=== PATIENT | male | born 1985 | race Caucasian/White ===

== ENCOUNTER 2016-08-04 15:29 | Emergency (ER) | payer OTHER ==
[~2016-08-04] VITALS: Ht 177.8 cm; Wt 91.0 kg
[~2016-08-04 15:29] MED LIST: DEXT30TA7 PO; PRLSR20 PO
[2016-08-04 15:35] VITALS: Ht 177.8 cm; Wt 91.0 kg
[2016-08-04] MEDS ORDERED: MoRPHine SULFATE 4 MG/ML 1 ML CARP\\VIAL IV PRN (16:00)
--- NOTE | 2016-08-04 16:30 | DIAGNOSTIC IMAGING REPORT ---
LEFT ANKLE 3 VIEWS CLINICAL HISTORY: Fall with left ankle pain. FINDINGS: 3 views of left ankle are obtained. No prior studies are available for comparison at the time of dictation. The skeletal structures are well mineralized. No fracture is seen. The ankle mortise is intact. A small joint effusion is noted. Soft tissue swelling is present around the ankle. IMPRESSION: Soft tissue swelling and joint effusion. No left ankle fracture is seen. Electronically signed by: Néstor Marina M.D. 08/04/2016 4:28 PM Dictated Date/Time: 08/04/2016 4:27 PM
--- NOTE | 2016-08-04 16:31 | DIAGNOSTIC IMAGING REPORT ---
RIGHT FOOT 3 VIEWS CLINICAL HISTORY: Fall with right foot pain. FINDINGS: 3 views of the right foot are obtained. No prior studies are available for comparison at the time of dictation. The skeletal structures are well mineralized. No fracture is seen. The joint spaces of the foot are well-maintained. The overlying soft tissues are within normal limits. IMPRESSION: Unremarkable radiographic assessment of the right foot. Electronically signed by: Néstor Marina M.D. 08/04/2016 4:29 PM Dictated Date/Time: 08/04/2016 4:28 PM
[2016-08-04] MEDS ORDERED: OXYCODONE/ACETAMINOPHEN 5-325 TAB PO STA (16:44)
[2016-08-04] MEDS ORDERED: DEXT1TAB15 PO (16:44)
--- NOTE | 2016-08-04 17:23 | EMERGENCY ROOM VISIT NOTE ---
ED Visit Note First contact with patient: 15:48 CHIEF COMPLAINT: Ankle pain HISTORY OF PRESENT ILLNESS: This 31-year-old male patient presents to the emergency department after sustaining an injury to the left ankle and right foot. Patient states he was running and slipped on wet floor, twisting his left ankle and slid across the floor striking both feet against the base. He was initially able to stand and walk on both feet, however quickly began to have significant pain with weightbearing, especially the left ankle. The patient complains of pain along the front and medial aspect of the left ankle. The patient has pain along the top of the right foot, no pain of the left foot. There are multiple abrasions on both feet and ankles, bleeding controlled. The patient rates the pain as throbbing and 9/10. The patient is not able to bear weight on the foot. Constant pain, worse with movement, weight bearing, and the dependent position. No knee pain, the patient is able to move their toes. No numbness or weakness of the foot. The patient has not had a previous fracture to his ankles or feet. The patient has taken no medications for the pain. The patient denies any other injury. He reports his tetanus shot is up- to-date. REVIEW OF SYSTEMS: A 6 system review of systems was completed with positives and pertinent negatives listed in the HPI. ALLERGIES: None MEDICATIONS: See chart PMH: See chart SOCIAL HISTORY: Lives with and children. Former smoker. PHYSICAL EXAM: Vital Signs: Reviewed Nurse's notes, vital signs stable. GENERAL : Cooperative and pleasant, no acute distress, but appears in pain, well- developed, well-nourished. MENTAL STATUS: Alert, oriented to person place and time, and cooperative. MUSCULOSKELETAL: The left ankle is swollen and tender over the medial malleolus, but the skin is intact and there is no ligamentous instability. There is no fifth metatarsal tenderness. There is no tenderness over the rest of the foot. The right foot is tender over the dorsum of the foot along the first and second med tarsals, no deformity noted. There are multiple abrasions over the right and left foot and ankle, bleeding controlled. There is no calf or tibia/fibular tenderness. There is no visual deformity. The foot and toes are warm and well-perfused. Dorsalis pedis pulse 2+. Sensation to pain and light touch is intact. Capillary refill less than 2 seconds. EMERGENCY DEPARTMENT COURSE: I examined the patient. There is obvious swelling and significant tenderness to the left medial ankle, DP and PT pulses intact with cap refill within normal limits, normal sensation in both feet. The right foot has tenderness to palpation along the dorsum of the foot, no obvious deformity. Patient is hesitant to move the left foot or ankle due to pain, but is able to wiggle his toes and give slight resistance with dorsiflexion, plantarflexion, and inversion. He is unable to jeremie the left ankle. X-rays of the left ankle and right foot were reviewed by myself and read by radiology and reveal no acute fracture or dislocation, soft tissue swelling and small effusion noted to the left ankle that is consistent with probable sprain/ligamentous injury. Gel ankle splint was applied to the ankle under my direction and the position was satisfactory. Neurovascular status was rechecked and intact. The patient attempted use of crutches, but felt too off balance due to some pain in the right foot. Patient was provided with a walker , which she tolerated well. The patient was discharged home in good condition. Problem List Medical Problems: (1) ADHD (attention deficit hyperactivity disorder) Status: Chronic (2) GERD (gastroesophageal reflux disease) Status: Chronic (3) Hiatal hernia Status: Chronic (4) Sleep apnea Status: Chronic Current/Historical Medications Scheduled Dextroamphetamine Sulfate (Dextroamphetamine Sulfate), 40 MG PO DAILY Omeprazole (Prilosec), 20 MG PO DAILY Scheduled PRN Oxycodone Ir (Roxicodone Ir), 1-2 TAB PO Q6H PRN for Severe Pain Allergies Coded Allergies: No Known Allergies (Unverified , 12/28/14) Vital Signs Date Time Temp Pulse Resp B/P (MAP) Pulse Ox O2 Delivery O2 Flow Rate FiO2 08/04/16 18:40 36.6 87 18 167/118 99 08/04/16 15:35 36.6 113 20 161/95 100 Room Air Medications Administered Medications (Trade) Dose Ordered Sig/Raul Route Start Time Stop Time Status Last Admin Dose Admin Oxycodone/ Acetaminophen (Percocet 5-325mg Tab) 1 tab NOW STAT PO 08/04/16 16:44 08/04/16 16:45 DC 08/04/16 16:57 1 TAB Departure Information Impression Primary Impression: Moderate left ankle sprain Additional Impression: Contusion of right foot Dispostion Home / Self-Care Condition GOOD Prescriptions Oxycodone Ir (Roxicodone Ir) 5 Mg Tab 1-2 TAB PO Q6H Y for Severe Pain for 3 Days, #24 TAB Prov: Kelsea Freeman, DRAKE 08/04/16 Referrals Car Negron M.D.([facility]) (PCP) Caden Wong D.O. Patient Instructions ED Contusion Foot, ED Sprain Ankle, [facility] Additional Instructions Apply ice to the ankle and foot and elevate for the next 2 days. Use the walker for ambulation, avoid weightbearing on the left ankle as much as possible. Ibuprofen, 600 mg and Tylenol 1000 mg every 8 hours if needed for pain. You may take the oxycodone as prescribed, as needed for severe pain. This is a narcotic, do not drive, operate machinery, drink alcohol while taking this medication. You should follow-up with an orthopedic surgeon within the next 5-7 days to evaluate your ankle sprain. Call to make an appointment. Follow up with your PCP as needed. Please return to the ER for any worsening symptoms, including severe pain that is not treated with your pain medication, increased swelling, redness or drainage from the abrasions concerning for infection, fever/chills, or any other concerns. Work Instructions Return To Work: after follow-up Additional Work Instructions: No weight bearing on the left ankle. Use the walker to ambulate until you are seen by the orthopedic doctor. Problem Qualifiers Primary Impression: Moderate left ankle sprain Encounter type: initial encounter Qualified Codes: S93.402A - Sprain of unspecified ligament of left ankle, initial encounter Additional Impression: Contusion of right foot Encounter type: initial encounter Qualified Codes: S90.31XA - Contusion of right foot, initial encounter
[2016-08-04] MEDS ORDERED: OXYC1TAB3 PO ×2 (17:52→18:07)
[2016-08-04 18:40] VITALS: BP 167/118; PULSE 87; TEMP 36.6; O2SAT 99
== END 2016-08-04 18:15 | disposition home or self-care (01) ==
LOC: C.EDB 15:33
DX: S93.402A Sprain of unspecified ligament of left ankle, initial encounter (principal); S90.01XA Contusion of right ankle, initial encounter; W10.1XXA Fall (on)(from) sidewalk curb, initial encounter; F90.9 Attention-deficit hyperactivity disorder, unspecified type; K21.9 Gastro-esophageal reflux disease without esophagitis; G47.30 Sleep apnea, unspecified; Z87.891 Personal history of nicotine dependence

== ENCOUNTER 2017-04-15 08:56 | Emergency (ER) | payer OTHER ==
[~2017-04-15] VITALS: Ht 177.8 cm; Wt 99.0 kg
[~2017-04-15 08:56] MED LIST changes: +DEXT1TAB15 PO; -DEXT30TA7 PO
[2017-04-15 09:10] VITALS: TEMP 36.7; Ht 177.8 cm; Wt 99.0 kg
[2017-04-15] MEDS ORDERED: CHLORDIAZEPOXIDE 25 MG CAP PO ONE ×2 (10:45→13:45)
--- NOTE | 2017-04-15 10:48 | EMERGENCY ROOM VISIT NOTE ---
History Report prepared by Claudy: Burak Frederick Under the Supervision of: Dr. Carroll Villatoro M.D. First contact with patient: 10:06 Chief Complaint: DETOX REQUEST Stated Complaint: ALCOHOLISM Nursing Triage Summary: Arrives for detox from alcohol. He relates "lots of alcohol. Let's just say 20 shots of day." Consumes "typically Vodka because it's cheaper". States "I mix it with stuff". Mixes with juice. Relates that he has been drinking "at least a few" years. He states "I have been able to stop drinking multiple times on my own. I've used it as a coping mechanism once I started having nervous breakdowns." Relates that he has "psychotic family members" and he is unable to refrain from drinking in their presence. He was detoxed a month ago and returned to the family member he has toxic relationship with. He conveys the person is his . He relates that he has been drinking this past weekend more than he ever has. He indicates that he sleeps and wakes up and immediately drinking. He is trying to taper himself off. Currently does not feel anxious because "I'm under the influence of alcohol right now." History of Present Illness The patient is a 32 year old white male with a past medical history of alcoholism who presents to the ED with a request for alcohol detoxification. Positive vivid lucid dreams. Negative auditory or visual hallucinations, suicidal ideation, homicidal ideation, fevers, nausea, vomiting, diarrhea, or abdominal pain. The patient states that he began to drink heavily a couple of years ago, which was a couple years into his marriage. He normally drinks about 1 L of 40% alcohol every day, mostly in mixed drinks. Over the past couple of weeks, he has tried to ween down his alcohol consumption, but has not been successful. He uses chewing tobacco as well. His last alcoholic drink was two hours ago. Source of History: patient Onset: recently Position: other (Global) Symptom Intensity: moderate Quality: other (Detox Request) Timing: constant Associated Symptoms: No fevers, No nausea, No vomiting, No abdominal pain, No diarrhea Note: He has been experiencing vivid lucid dreams. He denies any suicidal ideation, homicidal ideation, and hallucinations. Review of Systems See HPI for pertinent positives and negatives. A total of ten systems were reviewed and were otherwise negative. Past Medical & Surgical Medical Problems: (1) ADHD (attention deficit hyperactivity disorder) (2) GERD (gastroesophageal reflux disease) (3) Hiatal hernia (4) Sleep apnea Family History Patient reports no known family medical history. Social History Smoking Status: Former Smoker Smokeless Tobacco Use: Yes Alcohol Use: heavy Drug Use: none Marital Status: Housing Status: lives with family Occupation Status: unemployed Current/Historical Medications Scheduled Chlordiazepoxide (Librium), 25 MG PO BLANK Dextroamphetamine Sulfate (Dextroamphetamine Sulfate), 40 MG PO DAILY Omeprazole (Prilosec), 20 MG PO DAILY Allergies Coded Allergies: No Known Allergies (Unverified , 04/15/17) Physical Exam Vital Signs Date Time Temp Pulse Resp B/P (MAP) Pulse Ox O2 Delivery O2 Flow Rate FiO2 04/15/17 13:29 107 18 167/127 100 04/15/17 12:54 98 18 97 Room Air 04/15/17 10:54 90 20 192/121 99 Room Air 04/15/17 09:10 36.7 99 18 165/117 97 Room Air Physical Exam GENERAL: Awake, alert, well-appearing, NAD HENT: Normocephalic, atraumatic. No tongue fasciculations. EYES: Normal conjunctiva. Sclera non-icteric. NECK: Supple. No nuchal rigidity. FROM. RESPIRATORY: CTAB, no rhonchi, wheezing, crackles CARDIAC: RRR, no MRG ABDOMEN: Soft, NTND, BS+ MSK: No chest wall TTP, no LE edema. No asterixis NEURO: GCS 15, CN 2-12 intact, moves all 4s on command SKIN: No rash or jaundice noted. PSYCH: No SI, no HI, no AVH, no skin crawling. Medical Decision & Procedures Laboratory Results 04/15/17 09:45 Red Blood Count 5.39, Mean Corpuscular Volume 87.9, Mean Corpuscular Hemoglobin 31.0, Mean Corpuscular Hemoglobin Concent 35.2, Mean Platelet Volume 9.8, Neutrophils (%) (Auto) 51.1, Lymphocytes (%) (Auto) 34.6, Monocytes (%) (Auto) 10.1, Eosinophils (%) (Auto) 3.3, Basophils (%) (Auto) 0.6, Neutrophils # (Auto ) 3.42, Lymphocytes # (Auto) 2.32, Monocytes # (Auto) 0.68, Eosinophils # (Auto ) 0.22, Basophils # (Auto) 0.04 04/15/17 09:45 Test 04/15/17 09:45 04/15/17 11:04 White Blood Count 6.70 K/uL (4.8-10.8) Red Blood Count 5.39 M/uL (4.7-6.1) Hemoglobin 16.7 g/dL (14.0-18.0) Hematocrit 47.4 % (42-52) Mean Corpuscular Volume 87.9 fL (80-100) Mean Corpuscular Hemoglobin 31.0 pg (25-34) Mean Corpuscular Hemoglobin Concent 35.2 g/dl (32-36) Platelet Count 180 K/uL (130-400) Mean Platelet Volume 9.8 fL (7.4-10.4) Neutrophils (%) (Auto) 51.1 % Lymphocytes (%) (Auto) 34.6 % Monocytes (%) (Auto) 10.1 % Eosinophils (%) (Auto) 3.3 % Basophils (%) (Auto) 0.6 % Neutrophils # (Auto) 3.42 K/uL (1.4-6.5) Lymphocytes # (Auto) 2.32 K/uL (1.2-3.4) Monocytes # (Auto) 0.68 K/uL (0.11-0.59) Eosinophils # (Auto) 0.22 K/uL (0-0.5) Basophils # (Auto) 0.04 K/uL (0-0.2) RDW Standard Deviation 43.6 fL (36.4-46.3) RDW Coefficient of Variation 13.7 % (11.5-14.5) Immature Granulocyte % (Auto) 0.3 % Immature Granulocyte # (Auto) 0.02 K/uL (0.00-0.02) Urine Color YELLOW Urine Appearance CLEAR (CLEAR) Urine pH 8.0 (4.5-7.5) Urine Specific [place] 1.004 (1.000-1.030) Urine Protein NEG (NEG) Urine Glucose (UA) NEG (NEG) Urine Ketones NEG (NEG) Urine Occult Blood NEG (NEG) Urine Nitrite NEG (NEG) Urine Bilirubin NEG (NEG) Urine Urobilinogen NEG (NEG) Urine Leukocyte Esterase NEG (NEG) Anion Gap 8.0 mmol/L (3-11) Est Creatinine Clear Calc Drug Dose 116.9 ml/min Estimated GFR () 106.8 Estimated GFR (Non- 92.2 BUN/Creatinine Ratio 8.8 (10-20) Calcium Level 8.5 mg/dl (8.5-10.1) Total Bilirubin 0.5 mg/dl (0.2-1) Direct Bilirubin 0.2 mg/dl (0-0.2) Aspartate Amino Transf (AST/SGOT) 88 U/L (15-37) Alanine Aminotransferase (ALT/SGPT) 99 U/L (12-78) Alkaline Phosphatase 70 U/L (45-117) Total Protein 7.7 gm/dl (6.4-8.2) Albumin 3.7 gm/dl (3.4-5.0) Thyroid Stimulating Hormone (TSH) 4.660 uIu/ml (0.300-4.500) Salicylates Level < 1.7 mg/dl (2.8-20) Urine Opiates Screen NEG (NEG) Urine Methadone, Qualitative NEG (NEG) Acetaminophen Level < 2 ug/ml (10-30) Urine Barbiturates NEG (NEG) Urine Phencyclidine (PCP) Level NEG (NEG) Ur Amphetamine/Methamphetamine NEG (NEG) MDMA (Ecstasy) Screen NEG (NEG) Urine Benzodiazepines Screen NEG (NEG) Urine Cocaine Metabolite NEG (NEG) Urine Marijuana (THC) NEG (NEG) Ethyl Alcohol mg/dL 171.0 mg/dl (0-3) Laboratory results reviewed by me Medications Administered Medications (Trade) Dose Ordered Sig/Raul Route Start Time Stop Time Status Last Admin Dose Admin Chlordiazepoxide (Librium Cap) 100 mg NOW ONCE PO 04/15/17 10:45 04/15/17 10:46 DC 04/15/17 10:45 100 MG Chlordiazepoxide (Librium Cap) 100 mg NOW ONCE PO 04/15/17 13:45 04/15/17 13:46 DC 04/15/17 13:46 100 MG ED Course 1006: The patient was evaluated in room A5. A complete history and physical exam was performed. 1300: I reevaluated the patient. Discussed results and discharge instructions: He verbalized understanding and agreement. The patient is ready for discharge. Medical Decision The patient is a 32 year old white male with a past medical history of alcoholism who presents to the ED with a request for alcohol detoxification. Positive vivid lucid dreams. Negative auditory or visual hallucinations, suicidal ideation, homicidal ideation, fevers, nausea, vomiting, diarrhea, or abdominal pain. Differential diagnosis: Etiologies such as alcohol intoxication, toxicologic, infection, hypoglycemia, electrolyte abnormalities, cardiac sources, intracerebral event, neurologic, as well as others were entertained. Patient was seen and evaluated the bedside. Patient was requesting alcohol detox detoxification as well as referral services. Exam the patient had no no signs of delirium tremens. Patient last had a drink around 10 AM. Patient denies any SI, HI, a pH, or formication. Patient did have blood work completed. Patient has an alcohol level of 170. The patient is clinically sober. Patient was evaluated by case management give him referrals. Patient was given a first dose of Librium was prescribed Librium taper. Patient was told to follow up with his outpatient providers as well as any resources he was given by our mental health specialist. Patient was deemed suitable for outpatient follow-up and treatment at this time, and was told to return if he has any worsening of symptoms. Patient did have some asymptomatic hypertension was told to follow-up. He was told that discontinuing his drinking would help improve this. He was also counseled to take a multivitamin. Patient was given strict follow-up, discharge, and return precautions. All questions were answered. Patient was deemed suitable for outpatient follow-up at this time. Patient agreed with the plan of care and was safely discharged home. Of note the patient was given 100 mg of Librium and was told to take 50mg around 5 PM and another 50mg around 11 PM has he is not able to obtain his prescription until tomorrow as the pharmacy does not have it until tomorrow. Medication Reconcilliation Current Medication List: was personally reviewed by me Blood Pressure Screening Patient's blood pressure: Elevated blood pressure Blood pressure disposition: Referred to PCP Impression Primary Impression: Alcohol abuse Additional Impressions: Encounter for smoking cessation counseling Hypertension Scribe Attestation The scribe's documentation has been prepared under my direction and personally reviewed by me in its entirety. I confirm that the note above accurately reflects all work, treatment, procedures, and medical decision making performed by me. Departure Information Dispostion Home / Self-Care Prescriptions Chlordiazepoxide (Librium) 25 Mg Cap 25 MG PO BLANK for 4 Days, #19 CAP Take 2 tabs Q6H x 1 day, take 2 tabs Q8H x 1 day, take 1 take Q8H x 1 day, and take 1 tab Q12H x 1 day Prov: Carroll Villatoro M.D. 04/15/17 Referrals No Doctor, Assigned (PCP) Forms HOME CARE DOCUMENTATION FORM, IMPORTANT VISIT INFORMATION, WORK / SCHOOL INSTRUCTIONS Patient Instructions Addiction Alcohol Signs, Alcohol Abuse - [facility], ED Smoking Cessation, [facility] Additional Instructions Please return to the emergency department if you have worsening or recurrent symptoms not amenable to at-home treatment. Please call for a follow-up appointment with her primary care physician. Please take your medications as prescribed. If you have other concerns and/or complaints please feel free to also call your primary care physician's office or return the ED for further evaluation, management, and treatment. You were found to have an elevated blood pressure today (>120 sytolic or >90 diastolic). Per medicare guidelines, you need to follow up with this blood pressure screening with your Primary Care Physician (PCP). For a new PCP call [phone]. You received narcotic or benzodiazepene medication while in the emergency room today. This is an addictive medication that may cause drowziness as well as constipation. Do not drive, operate heavy machinery, or drink alcohol under the influence of this medication. Please take the Librium as prescribed. Please follow-up with your PCP in addition follow-up with any resources were given here at the emergency department. Please try to stop drinking as well as tobacco cessation. You have been examined and treated today on an emergency basis only. This is not a substitute for, or an effort to provide, complete comprehensive medical care. It is impossible to recognize and treat all injuries or illnesses in a single emergency department visit. It is therefore important that you follow up closely with [facility], your PCP, and/or your specialist(s). Call as soon as possible for an appointment. Thank you for your time and consideration. I look forward to speaking with you again soon. Please don't hesitate to call us if you have any questions. Problem Qualifiers Additional Impressions: Hypertension Hypertension type: unspecified Qualified Codes: I10 - Essential (primary) hypertension
[2017-04-15 10:55] LABS: BASO % 0.6 %; BASO ABS # 0.04 K/uL (0-0.2); EOS % 3.3 %; EOS ABS # 0.22 K/uL (0-0.5); HEMATOCRIT 47.4 % (42-52); HEMOGLOBIN 16.7 g/dL (14.0-18.0); IG# 0.02 K/uL (0.00-0.02); LYMPH % 34.6 %; LYMPH ABS # 2.32 K/uL (1.2-3.4); MEAN CELL VOLUME 87.9 fL (80-100); MEAN CORPUSCULAR HGB CONC 35.2 g/dl (32-36); MEAN PLATELET VOLUME 9.8 fL (7.4-10.4); MONO % 10.1 %; MONO ABS # 0.68 K/uL (0.11-0.59); NEUT % 51.1 %; NEUT ABS # 3.42 K/uL (1.4-6.5); PLATELET COUNT 180 K/uL (130-400); RED CELL DISTRIBUTION WIDTH CV 13.7 % (11.5-14.5); RED CELL DISTRIBUTION WIDTH SD 43.6 fL (36.4-46.3)
[2017-04-15 11:19] LABS: ALBUMIN 3.7 gm/dl (3.4-5.0); CALCIUM 8.5 mg/dl (8.5-10.1); CREATININE 1.05 mg/dl (0.60-1.40)
[2017-04-15 11:22] LABS: POTASSIUM 4.4 mmol/L (3.5-5.1)
[2017-04-15 11:25] LABS: TOTAL PROTEIN 7.7 gm/dl (6.4-8.2)
[2017-04-15] MEDS ORDERED: CHLO25CA10 PO (12:59)
[2017-04-15 13:29] VITALS: BP 167/127; PULSE 107; O2SAT 100
[2017-04-15] MEDS ORDERED: EMPTY 8 DRAM VIAL ONE (13:42)
== END 2017-04-15 13:31 | disposition home or self-care (01) ==
LOC: C.EDB 08:58 → C.EDA 13:31
DX: F10.10 Alcohol abuse, uncomplicated (principal); Z71.6 Tobacco abuse counseling; I10 Essential (primary) hypertension; F90.9 Attention-deficit hyperactivity disorder, unspecified type; K21.9 Gastro-esophageal reflux disease without esophagitis; G47.30 Sleep apnea, unspecified; K44.9 Diaphragmatic hernia without obstruction or gangrene; Z87.891 Personal history of nicotine dependence; Z79.899 Other long term (current) drug therapy

== ENCOUNTER 2020-12-23 14:30 | Inpatient (IN) ==
[2020-12-23] MEDS ORDERED: THIAMINE HCL 100 MG TAB PO ONE (15:39)
[2020-12-23 16:06] LABS: Appearance Urine Cloudy (Clear); Bacteria Urine Automated Negative (Negative); Bilirubin Urine Negative (Negative); Blood Urine Negative (Negative); Color Urine Dark Yellow; Epithelial Cell Urine Auto >30 /lpf (0-5); Glucose Urine UA Negative (Negative); Ketones Urine Trace (Negative); Leukocyte Esterase Urine Negative (Negative); Nitrite Urine Negative (Negative); Protein Urine Negative (Negative); RBC Urine Automated 0-4 /hpf (0-4); Specific Gravity Urine 1.021 (1.000-1.030); Urobilinogen Urine Negative (Negative)
[2020-12-23 16:13] LABS: Pregnancy Test, Serum Negative (Negative)
[2020-12-23 16:16] LABS: Acetaminophen < 2 ug/ml (10-30); Salicylate < 1.7 mg/dl (2.8-20)
[2020-12-23 16:20] LABS: Albumin Level 4.1 gm/dl (3.4-5.0); BUN Creatinine Ratio 7.8 (10-20); Calcium 9.4 mg/dl (8.5-10.1)
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
[2020-12-23 16:26] LABS: Amphetamines+Metham, Urine Neg (Neg); Barbiturates, Urine Neg (Neg); Benzodiazepine, Urine Neg (Neg); Cocaine, Urine Neg (Neg); MDMA (Ecstacy), Urine Neg (Neg); Methadone, Urine Neg (Neg); Opiate, Urine Neg (Neg); Phencyclidine, Urine Neg (Neg)
[2020-12-23 16:31] LABS: Albumin Globulin Ratio 1.1 (0.9-2); Bilirubin,Total 0.5 mg/dl (0.2-1); Globulin 3.7 gm/dl (2.5-4.0); Thyroid Stimulating Hormone 2.97 uIu/ml (0.300-4.500); Total Protein 7.8 gm/dl (6.4-8.2)
[2020-12-23] MEDS ORDERED: NICOTINE 21 MG/24 HR TDSY TD ONE (16:31)
[2020-12-23 16:59] LABS: Basophils # (auto) 0.03 K/uL (0-0.2); Basophils % (auto) 0.3 %; Eosinophils # (auto) 0.16 K/uL (0-0.5); Eosinophils % (auto) 1.7 %; Immature Granulocytes # (auto) 0.03 K/uL (0.00-0.02); Immature Granulocytes % (auto) 0.3 %; Lymphocytes # (auto) 1.95 K/uL (1.2-3.4); Lymphocytes % (auto) 20.8 %; Mean Corpuscular Hgb Conc 34.9 g/dL (32-36); Mean Corpuscular Volume 88.8 fL (80-100); Mean Platelet Volume 10.7 fL (7.4-10.4); Monocytes # (auto) 0.75 K/uL (0.11-0.59); Neutrophils # (auto) 6.44 K/uL (1.4-6.5); Neutrophils % (auto) 68.9 %; Platelet Count 281 K/uL (130-400); RDW Coefficient of Variation 13.7 % (11.5-14.5); RDW Standard Deviation 44.7 fL (36.4-46.3); White Blood Count 9.36 K/uL (4.8-10.8)
[2020-12-23] MEDS ORDERED: LORazepam 1 MG TAB PO STA (17:01)
[2020-12-23] MEDS ORDERED: ONDANSETRON INJ 2 MG/ML 2 ML VIAL IV STA (17:26)
[2020-12-23] MEDS ORDERED: LORazepam 1 MG/2 ML VIAL IV STA (17:26)
[2020-12-23] MEDS ORDERED: SODIUM CHLORIDE 0.9% 1000ML 1,000 ML IV STA (17:26)
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
[2020-12-23] MEDS ORDERED: GABAPENTIN 1200MG ALCOHOL WITHDRAWAL LOAD PO STA (18:08)
[2020-12-23] MEDS ORDERED: GABAPENTIN 600 MG TAB PO ONE (18:15)
[2020-12-23 18:48] LABS: Magnesium 2.1 mg/dl (1.8-2.4); Phosphorus 2.5 mg/dl (2.5-4.9); Troponin I < 0.015 ng/ml (0-0.045)
[2020-12-24] MEDS ORDERED: POLYETHYLENE (MIRALAX) 17 GM PACK PO PRN (00:01)
[2020-12-24] MEDS ORDERED: LORazepam 3 MG/6 ML VIAL IV PRN (00:01)
[2020-12-24] MEDS ORDERED: SODIUM CHLORIDE 0.9% 1000ML 1,000 ML IV SCH (00:01)
[2020-12-24] MEDS ORDERED: ATIVAN IV ALCOHOL WITHDRAWL IV PRN (00:01)
[2020-12-24] MEDS ORDERED: ONDANSETRON INJ 2 MG/ML 2 ML VIAL IV PRN (00:01)
[2020-12-24] MEDS ORDERED: LORazepam 2 MG/4 ML VIAL IV PRN (00:01)
[2020-12-24] MEDS ORDERED: PATIENT'S ALLERGY INFO NEEDS ENTERED STA (00:08)
[2020-12-24] MEDS: chlordiazePOXIDE HCl 25 MG CAP PO SCH ×3 (01:12→17:25)
[2020-12-24] MEDS: LORazepam 1 MG/2 ML VIAL IV PRN ×3 (01:27→13:24)
[2020-12-24] MEDS: FOLIC ACID 1 MG TAB PO SCH ×2 (01:55→08:50)
[2020-12-24] MEDS: THIAMINE HCL 100 MG TAB PO SCH ×2 (01:55→08:50)
[2020-12-24 07:43] LABS: Hematocrit (blood only) 39.7 % (42-52); Hemoglobin 13.5 g/dL (14.0-18.0); Mean Corpuscular Hemoglobin 30.7 pg (25-34); Mean Corpuscular Volume 90.2 fL (80-100); Mean Platelet Volume 10.5 fL (7.4-10.4); Platelet Count 223 K/uL (130-400); RDW Coefficient of Variation 13.9 % (11.5-14.5); RDW Standard Deviation 45.8 fL (36.4-46.3); White Blood Count 7.87 K/uL (4.8-10.8)
[2020-12-24 08:11] LABS: BUN Creatinine Ratio 9.1 (10-20); Calcium 8.1 mg/dl (8.5-10.1); Creatinine Clr Calc Pharmacy 127.7 ml/min; Est GFR (African American) 124.3 ml/min; Est GFR (Non-African American) 107.3 ml/min
[2020-12-24 08:12] LABS: Phosphorus 3.5 mg/dl (2.5-4.9)
[2020-12-24] MEDS: MULTIVITAMIN TAB PO SCH (08:50)
[2020-12-24] MEDS: NICOTINE 21 MG/24 HR TDSY TD SCH (08:50)
[2020-12-24] MEDS: FINASTERIDE 5 MG TAB PO SCH ×2 (08:50→08:56)
[2020-12-24] MEDS: PANTOprazole 40 MG TAB PO SCH (08:56)
--- NOTE | 2020-12-24 14:04 | Electrocardiogram Report ---
Test Reason : Blood Pressure : / mmHG Vent. Rate : 079 BPM Atrial Rate : 079 BPM P-R Int : 130 ms QRS Dur : 072 ms QT Int : 384 ms P-R-T Axes : 000 090 -23 degrees QTc Int : 440 ms Normal sinus rhythm Rightward axis Low voltage QRS Nonspecific T wave abnormality Abnormal ECG No previous ECGs available Confirmed by Manny Jones ([id number]) on 12/24/2020 2:04:23 PM Referred By: REFERRED SELF Confirmed By:Manny Jones
--- NOTE | 2020-12-24 16:40 | Hospitalist Progress Note ---
Date of Service December 24, 2020 Assessment & Plan (1) Anxiety and depression: (2) Alcohol withdrawal: (3) Tobacco use: Plan: 35 y/o male to female transgender with PMH of PTSD, HTN, tobacco use, alcohol abuse, medical marijuana use presented to ER 12/23 with complaint of impending alcohol withdrawal. Patient is a relapsed alcoholic, who had been sober prior but due to recent stressful social situation resorted back to drinking but then she decided to come to hospital with intention to quit drinking and is worried about impending withdrawal. She is being managed for the following: #. Alcohol withdrawal: Drinks fifth of vodka. H/O outpatient Librium use for ETOH withdrawal Denies history of alcohol withdrawal seizures or DTs In ER patient afebrile, P: 101 down to 85, R: 20, BP 187/120, 98% on room air. No significant electrolyte abnormality. Urine drug tox + marijuana. EtOH: 11 Thiamine, folic acid, MARC protocol, scheduled Librium Monitor electrolytes, replace as appropriate Decrease the frequency of Librium in 1 to 2 days. Continue to monitor #. HTN (hypertension): History of hypertension and was on amlodipine in past. Was able to discontinue secondary to improved BPs Hypertensive in ER. Likely secondary to alcohol withdrawal, anxiety Treat alcohol withdrawal as above, monitor BP may need to add additional agent, evaluate in 1 to 2 days. #. Fmkc-cr-qdbdhu transgender person: Follows with [facility] Continue hormone therapy #. PTSD (post-traumatic stress disorder): Reports under significant stress recently with social situation -recent break-up of significant other which in turn reports will have difficulties with housing and job Denies suicidal or homicidal ideations manager medicare marketing consult with assistance for discharge planning #. Tobacco use: Currently smoking 1 pack/day. Wants to stop smoking Nicotine patch, DC with nicotine patch #. Medical marijuana use: Using for history of PTSD and pain. Recently admits to using more than was prescribed Wants to discontinue use, pt counselled. DVT Prophylaxis -SCDs, Heparin Full Code as per discussion with pt Follows with Dr Patel for routine care Admission and Anticipated Discharge Date Admission Date: December 23, 2020 Subjective Patient was lying in bed, on room air, NAD, no acute events overnight. Patient requiring 3 mg Ativan so far. Patient is on scheduled Librium, denies headache/chills/sweats/chest pain/palpitation/other review of symptoms. Physical Exam Physical Exam: GENERAL: Alert and oriented x3. NAD, on RA. HEENT: No pallor, no icterus. Pupils equal, round and reactive to light. Oral mucosa moist. NECK: No JVD, no neck masses. HEART: S1 and S2 heard. Regular rate and rhythm. No murmur, no gallop. RESPIRATORY SYSTEM: Normal AP diameter. No accessory muscle use. No wheezing, no crackles. ABDOMEN: Soft, bowel sounds present, nontender, no distention. CENTRAL NERVOUS SYSTEM: Alert and oriented x3. No facial droop. Speech is clear. Obeys simple commands. Moves extremities. EXTREMITIES: No edema, no erythema seen. Results & Data Results & Data ([facility]) Vital Signs (Past 12 Hours) Vital Signs Temp Pulse Pulse Resp BP BP Pulse Ox 12/24/20 16:04 36.5 C 80 19 144/91 H 99 12/24/20 16:00 80 12/24/20 13:12 36.6 C 90 22 162/119 H 100 12/24/20 07:31 71 12/24/20 07:07 36.6 C 80 18 134/93 99 (1) Alcohol withdrawal Complication of substance-induced condition: uncomplicated Qualified Code(s): F10.230 - Alcohol dependence with withdrawal, uncomplicated
[2020-12-24] MEDS: HEPARIN SOD 5,000 UNIT/0.5 ML VIAL SQ SCH (20:19)
[2020-12-25] MEDS: chlordiazePOXIDE HCl 25 MG CAP PO SCH ×4 (00:23→23:48)
[2020-12-25] MEDS: LORazepam 1 MG/2 ML VIAL IV PRN ×3 (00:27→21:55)
[2020-12-25 07:40] LABS: BUN Creatinine Ratio 11.8 (10-20); Calcium 8.6 mg/dl (8.5-10.1); Creatinine Clr Calc Pharmacy 129.3 ml/min; Est GFR (Non-African American) 108.7 ml/min; Magnesium 2.1 mg/dl (1.8-2.4); Phosphorus 3.3 mg/dl (2.5-4.9); Potassium 3.7 mmol/L (3.5-5.1)
[2020-12-25] MEDS: FINASTERIDE 5 MG TAB PO SCH (07:52)
[2020-12-25] MEDS: THIAMINE HCL 100 MG TAB PO SCH (07:54)
[2020-12-25] MEDS: MULTIVITAMIN TAB PO SCH (07:55)
[2020-12-25] MEDS: PANTOprazole 40 MG TAB PO SCH ×2 (07:55→08:00)
[2020-12-25] MEDS: FOLIC ACID 1 MG TAB PO SCH (07:55)
[2020-12-25] MEDS: NICOTINE 21 MG/24 HR TDSY TD SCH (07:55)
[2020-12-25] MEDS: HEPARIN SOD 5,000 UNIT/0.5 ML VIAL SQ SCH ×2 (07:56→21:06)
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
--- NOTE | 2020-12-25 17:55 | Hospitalist Progress Note ---
Date of Service December 25, 2020 Assessment & Plan (1) Anxiety and depression: (2) Alcohol withdrawal: (3) Tobacco use: Plan: 35 y/o male to female transgender with PMH of PTSD, HTN, tobacco use, alcohol abuse, medical marijuana use presented to ER 12/23 with complaint of impending alcohol withdrawal. Patient is a relapsed alcoholic, who had been sober prior but due to recent stressful social situation resorted back to drinking but then she decided to come to hospital with intention to quit drinking and is worried about impending withdrawal. She is being managed for the following: #. Alcohol withdrawal: #. PTSD Drinks fifth of vodka. H/O outpatient Librium use for ETOH withdrawal Denies history of alcohol withdrawal seizures or DTs was in [employer], h/o PTSD In ER patient afebrile, P: 101 down to 85, R: 20, BP 187/120, 98% on room air. No significant electrolyte abnormality. Urine drug tox + marijuana. EtOH: 11 Thiamine, folic acid, MARC protocol, scheduled Librium Monitor electrolytes, replace as appropriate Decrease the frequency of Librium in 1 to 2 days. Psychiatry consulted: Started mirtazapine 15 mg at bedtime, recommends inpatient D&A rehab, lesion to facilitate with referral to [facility]. Patient will need therapist and prescriber for ongoing follow-up. Continue to monitor #. HTN (hypertension): History of hypertension and was on amlodipine in past. Was able to discontinue secondary to improved BPs Hypertensive in ER. Likely secondary to alcohol withdrawal, anxiety Treat alcohol withdrawal as above, monitor BP may need to add additional agent, closely monitor. #. Lljg-gk-xgdvey transgender person: Follows with [facility] Continue hormone therapy #. PTSD (post-traumatic stress disorder): Reports under significant stress recently with social situation -recent break-up of significant other which in turn reports will have difficulties with housing and job Denies suicidal or homicidal ideations customer marketing manager consult with assistance for discharge planning #. Tobacco use: Currently smoking 1 pack/day. Wants to stop smoking Nicotine patch, DC with nicotine patch #. Medical marijuana use: Using for history of PTSD and pain. Recently admits to using more than was prescribed Wants to discontinue use, pt counselled. DVT Prophylaxis -SCDs, Heparin Full Code as per discussion with pt Follows with Dr Patel for routine care Disposition: Patient needs inpatient D&A rehab, catalytic case operator to assist with discharge planning. Patient possible discharge in next 1 to 2 days. Admission and Anticipated Discharge Date Admission Date: December 23, 2020 Subjective Patient was lying in bed, on room air, NAD, no acute events overnight. Patient is on scheduled Librium, denies headache/chills/sweats/chest pain/palpitation/other review of symptoms. Physical Exam Physical Exam: GENERAL: Alert and oriented x3. NAD, on RA. HEENT: No pallor, no icterus. Pupils equal, round and reactive to light. Oral mucosa moist. NECK: No JVD, no neck masses. HEART: S1 and S2 heard. Regular rate and rhythm. No murmur, no gallop. RESPIRATORY SYSTEM: Normal AP diameter. No accessory muscle use. No wheezing, no crackles. ABDOMEN: Soft, bowel sounds present, nontender, no distention. CENTRAL NERVOUS SYSTEM: Alert and oriented x3. No facial droop. Speech is clear. Obeys simple commands. Moves extremities. EXTREMITIES: No edema, no erythema seen. Results & Data Results & Data ([facility]) Vital Signs (Past 12 Hours) Vital Signs Temp Pulse Pulse Resp BP BP Pulse Ox 12/25/20 15:52 36.7 C 94 H 20 133/71 98 12/25/20 15:46 91 H 12/25/20 13:04 36.9 C 97 H 22 165/114 H 12/25/20 11:50 36.6 C 104 H 20 169/102 H 98 12/25/20 07:50 36.9 C 75 18 124/84 99 12/25/20 07:28 74 (1) Alcohol withdrawal Complication of substance-induced condition: uncomplicated Qualified Code(s): F10.230 - Alcohol dependence with withdrawal, uncomplicated
[2020-12-25] MEDS: MIRTAZAPINE TAB 15 MG TAB PO SCH (21:55)
[2020-12-25] MEDS: ACETAMINOPHEN 325 MG TAB PO PRN (23:48)
[2020-12-26 07:54] LABS: BUN Creatinine Ratio 17.9 (10-20); Calcium 8.6 mg/dl (8.5-10.1); Creatinine Clr Calc Pharmacy 140.4 ml/min; Est GFR (African American) 130.3 ml/min; Est GFR (Non-African American) 112.4 ml/min; Magnesium 2.2 mg/dl (1.8-2.4); Phosphorus 3.3 mg/dl (2.5-4.9); Potassium 3.5 mmol/L (3.5-5.1)
[2020-12-26] MEDS: chlordiazePOXIDE HCl 25 MG CAP PO SCH ×3 (08:07→23:10)
[2020-12-26] MEDS: MULTIVITAMIN TAB PO SCH (08:08)
[2020-12-26] MEDS: NICOTINE 21 MG/24 HR TDSY TD SCH (08:08)
[2020-12-26] MEDS: THIAMINE HCL 100 MG TAB PO SCH (08:09)
[2020-12-26] MEDS: FINASTERIDE 5 MG TAB PO SCH (08:09)
[2020-12-26] MEDS: FOLIC ACID 1 MG TAB PO SCH (08:09)
[2020-12-26] MEDS: PANTOprazole 40 MG TAB PO SCH (08:09)
[2020-12-26] MEDS: HEPARIN SOD 5,000 UNIT/0.5 ML VIAL SQ SCH ×2 (08:10→20:18)
[2020-12-26 12:02] LABS: Marijuana Quant, GCMS Urine 791 ng/mL (<5)
--- NOTE | 2020-12-26 17:09 | Communication Note ---
Date of Service: December 26, 2020 For some reason, with multiple attempts during the day I could not open progress note document for her. Hence using supplemental note for progress note. Please use the following as a progress note for the day for the patient. 35 y/o male to female transgender with PMH of PTSD, HTN, tobacco use, alcohol abuse, medical marijuana use presented to ER 12/23 with complaint of impending alcohol withdrawal. Patient is a relapsed alcoholic, who had been sober prior but due to recent stressful social situation resorted back to drinking but then she decided to come to hospital with intention to quit drinking and is worried about impending withdrawal. She is being managed for the following: Subjective: Patient is lying in bed, NAD, on room air, no acute events overnight. Patient denies headache/chills/chest pain/other review of symptoms. Upon examination: GENERAL: Alert and oriented x3. NAD, on RA. HEENT: No pallor, no icterus. Pupils equal, round and reactive to light. Oral mucosa moist. NECK: No JVD, no neck masses. HEART: S1 and S2 heard. Regular rate and rhythm. No murmur, no gallop. RESPIRATORY SYSTEM: Normal AP diameter. No accessory muscle use. No wheezing, no crackles. ABDOMEN: Soft, bowel sounds present, nontender, no distention. CENTRAL NERVOUS SYSTEM: Alert and oriented x3. No facial droop. Speech is clear. Obeys simple commands. Moves extremities. EXTREMITIES: No edema, no erythema seen. #. Alcohol withdrawal: #. PTSD Drinks fifth of vodka. H/O outpatient Librium use for ETOH withdrawal Denies history of alcohol withdrawal seizures or DTs was in [employer], h/o PTSD In ER patient afebrile, P: 101 down to 85, R: 20, BP 187/120, 98% on room air. No significant electrolyte abnormality. Urine drug tox + marijuana. EtOH: 11 Thiamine, folic acid, MARC protocol, scheduled Librium Monitor electrolytes, replace as appropriate Decrease the frequency of Librium in 1 to 2 days. Psychiatry consulted: Started mirtazapine 15 mg at bedtime, recommends inpatient D&A rehab, lesion to facilitate with referral to [facility]. Patient will need therapist and prescriber for ongoing follow-up. Continue to monitor, patient feeling better, will transfer her out of PCU/Tele Will start tapering librium once her prn ativan use becomes less frequent. Awaiting placement. #. HTN (hypertension): History of hypertension and was on amlodipine in past. Was able to discontinue secondary to improved BPs Hypertensive in ER. Likely secondary to alcohol withdrawal, anxiety Treat alcohol withdrawal as above, monitor BP may need to add additional agent, closely monitor. #. Pxwz-xm-rvceva transgender person: Follows with [facility] Continue hormone therapy #. PTSD (post-traumatic stress disorder): Reports under significant stress recently with social situation -recent break-up of significant other which in turn reports will have difficulties with housing and job Denies suicidal or homicidal ideations marketing effectiveness manager consult with assistance for discharge planning #. Tobacco use: Currently smoking 1 pack/day. Wants to stop smoking Nicotine patch, Discharge with nicotine patch #. Medical marijuana use: Using for history of PTSD and pain. Recently admits to using more than was prescribed Wants to discontinue use, pt counselled. DVT Prophylaxis -SCDs, Heparin Full Code as per discussion with pt Follows with Dr Patel for routine care
[2020-12-26] MEDS: ACETAMINOPHEN 325 MG TAB PO PRN (20:17)
[2020-12-26] MEDS: PROGESTERONE PO SCH (23:08)
[2020-12-26] MEDS: MIRTAZAPINE TAB 15 MG TAB PO SCH (23:11)
[2020-12-27 07:15] LABS: BUN Creatinine Ratio 20.3 (10-20); Calcium 8.7 mg/dl (8.5-10.1); Creatinine Clr Calc Pharmacy 132.4 ml/min; Est GFR (African American) 127.2 ml/min; Est GFR (Non-African American) 109.7 ml/min; Magnesium 2.1 mg/dl (1.8-2.4); Potassium 3.8 mmol/L (3.5-5.1)
[2020-12-27] MEDS ORDERED: DEPO ESTRADIOL IM SCH (09:00)
[2020-12-27] MEDS: FINASTERIDE 5 MG TAB PO SCH (09:38)
[2020-12-27] MEDS: FOLIC ACID 1 MG TAB PO SCH (09:39)
[2020-12-27] MEDS: HEPARIN SOD 5,000 UNIT/0.5 ML VIAL SQ SCH ×2 (09:41→20:03)
[2020-12-27] MEDS: MULTIVITAMIN TAB PO SCH (09:41)
[2020-12-27] MEDS: NICOTINE 21 MG/24 HR TDSY TD SCH (09:41)
[2020-12-27] MEDS: THIAMINE HCL 100 MG TAB PO SCH (09:46)
[2020-12-27] MEDS: PANTOprazole 40 MG TAB PO SCH (09:46)
[2020-12-27] MEDS: chlordiazePOXIDE HCl 25 MG CAP PO SCH ×2 (10:04→21:51)
[2020-12-27] MEDS ORDERED: chlordiazePOXIDE HCl 25 MG CAP PO SCH (11:15)
--- NOTE | 2020-12-27 14:16 | Communication Note ---
Date of Service: December 27, 2020 Patient is tolerating Remeron with improved sleep and no evidence of activation. She is a fast talker/dramatic at baseline due to personality and hx of ADHD. Liaison facilitating referral to [facility] as unable to return to [facility] due to number of missed appointments.
--- NOTE | 2020-12-27 18:11 | Communication Note ---
Date of Service: December 27, 2020 For some reason, with multiple attempts during the day I could not open progress note document for her again today. Hence using supplemental note for progress note. Please use the following as a progress note for the day for the patient. 35 y/o male to female transgender with PMH of PTSD, HTN, tobacco use, alcohol abuse, medical marijuana use presented to ER 12/23 with complaint of impending alcohol withdrawal. Patient is a relapsed alcoholic, who had been sober prior but due to recent stressful social situation resorted back to drinking but then she decided to come to hospital with intention to quit drinking and is worried about impending withdrawal. She is being managed for the following: Subjective: Patient is lying in bed, NAD, on room air, no acute events overnight. Patient reporting some upper back pain, likely from being in the bed for prolonged time. Naproxen as needed, ambulation every 1-2 hours. Patient denies headache/chills/chest pain/other review of symptoms. Upon examination: GENERAL: Alert and oriented x3. NAD, on RA. HEENT: No pallor, no icterus. Pupils equal, round and reactive to light. Oral mucosa moist. NECK: No JVD, no neck masses. HEART: S1 and S2 heard. Regular rate and rhythm. No murmur, no gallop. RESPIRATORY SYSTEM: Normal AP diameter. No accessory muscle use. No wheezing, no crackles. ABDOMEN: Soft, bowel sounds present, nontender, no distention. CENTRAL NERVOUS SYSTEM: Alert and oriented x3. No facial droop. Speech is clear. Obeys simple commands. Moves extremities. EXTREMITIES: No edema, no erythema seen. #. Alcohol withdrawal: #. PTSD Drinks fifth of vodka. H/O outpatient Librium use for ETOH withdrawal Denies history of alcohol withdrawal seizures or DTs was in [employer], h/o PTSD In ER patient afebrile, P: 101 down to 85, R: 20, BP 187/120, 98% on room air. No significant electrolyte abnormality. Urine drug tox + marijuana. EtOH: 11 Thiamine, folic acid, MARC protocol, scheduled Librium Monitor electrolytes, replace as appropriate Decrease the frequency of Librium to twice a day, continue to monitor. Psychiatry consulted: Started mirtazapine 15 mg at bedtime, recommends inpatient D&A rehab, Liasion to facilitate with referral to [facility]. Patient will need therapist and prescriber for ongoing follow-up. Continue to monitor, patient feeling better Taper librium to stop in 4-5 days Awaiting placement. #. HTN (hypertension): History of hypertension and was on amlodipine in past. Was able to discontinue secondary to improved BPs Hypertensive in ER. Likely secondary to alcohol withdrawal, anxiety Treat alcohol withdrawal as above, monitor BP, may need to add additional agent, closely monitor. #. Xpta-ar-vdgmfk transgender person: Follows with [facility] Continue hormone therapy #. PTSD (post-traumatic stress disorder): Reports under significant stress recently with social situation -recent break-up of significant other which in turn reports will have difficulties with housing and job Denies suicidal or homicidal ideations manager safe consult with assistance for discharge planning #. Tobacco use: Currently smoking 1 pack/day. Wants to stop smoking Nicotine patch, Discharge with nicotine patch #. Medical marijuana use: Using for history of PTSD and pain. Recently admits to using more than was prescribed Wants to discontinue use, pt counselled. DVT Prophylaxis -SCDs, Heparin Full Code as per discussion with pt Follows with Dr Patel for routine care
[2020-12-27] MEDS: ACETAMINOPHEN 325 MG TAB PO PRN (19:26)
[2020-12-27] MEDS ORDERED: KETOROLAC TROMETHAMINE 15 MG/ML VIAL IV ONE (19:31)
[2020-12-27] MEDS ORDERED: NAPROXEN 250 MG TAB PO PRN (19:33)
[2020-12-27] MEDS: MIRTAZAPINE TAB 15 MG TAB PO SCH (21:51)
[2020-12-27] MEDS: PROGESTERONE PO SCH (21:51)
[2020-12-27] MEDS ORDERED: cloNIDine HCL 0.1 MG TAB PO ONE (23:05)
[2020-12-27] MEDS ORDERED: LORazepam 2 MG/4 ML VIAL IV PRN (23:10)
[2020-12-27] MEDS ORDERED: LORazepam 3 MG/6 ML VIAL IV PRN (23:10)
[2020-12-27] MEDS ORDERED: ATIVAN IV ALCOHOL WITHDRAWL IV PRN (23:10)
[2020-12-27] MEDS ORDERED: LORazepam 1 MG/2 ML VIAL IV PRN (23:10)
[2020-12-28] MEDS: FINASTERIDE 5 MG TAB PO SCH (07:50)
[2020-12-28] MEDS: HEPARIN SOD 5,000 UNIT/0.5 ML VIAL SQ SCH ×2 (07:50→19:51)
[2020-12-28] MEDS: NICOTINE 21 MG/24 HR TDSY TD SCH (07:50)
[2020-12-28] MEDS: FOLIC ACID 1 MG TAB PO SCH (07:50)
[2020-12-28] MEDS: THIAMINE HCL 100 MG TAB PO SCH (07:50)
[2020-12-28] MEDS: MULTIVITAMIN TAB PO SCH (07:51)
[2020-12-28] MEDS: PANTOprazole 40 MG TAB PO SCH (07:51)
[2020-12-28] MEDS: chlordiazePOXIDE HCl 25 MG CAP PO SCH ×2 (10:15→21:21)
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
[2020-12-28] MEDS: amLODIPine BESYLATE 5 MG TAB PO SCH (16:08)
[2020-12-28] MEDS: PROGESTERONE PO SCH (21:21)
[2020-12-28] MEDS: MIRTAZAPINE TAB 15 MG TAB PO SCH (21:22)
[2020-12-29] MEDS: FOLIC ACID 1 MG TAB PO SCH (10:12)
[2020-12-29] MEDS: NICOTINE 21 MG/24 HR TDSY TD SCH (10:12)
[2020-12-29] MEDS: FINASTERIDE 5 MG TAB PO SCH (10:12)
[2020-12-29] MEDS: amLODIPine BESYLATE 5 MG TAB PO SCH (10:12)
[2020-12-29] MEDS: PANTOprazole 40 MG TAB PO SCH (10:13)
[2020-12-29] MEDS: MULTIVITAMIN TAB PO SCH (10:13)
[2020-12-29] MEDS: THIAMINE HCL 100 MG TAB PO SCH (10:13)
[2020-12-29] MEDS: HEPARIN SOD 5,000 UNIT/0.5 ML VIAL SQ SCH (10:15)
[2020-12-29] MEDS: chlordiazePOXIDE HCl 25 MG CAP PO SCH (10:31)
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
[2020-12-29] MEDS ORDERED: chlordiazePOXIDE HCl 25 MG CAP PO SCH (13:30)
[2021-01-06 12:57] LABS: Est GFR (African American) 121.1 ml/min; Est GFR (Non-African American) 104.5 ml/min
[2021-01-06 12:58] LABS: Creatinine Clr Calc Pharmacy 125.3 ml/min; Hematocrit (blood only) 42.7 % (42-52); Hemoglobin 14.9 g/dL (14.0-18.0); Red Blood Count 4.81 M/uL (4.7-6.1)
== END 2020-12-29 17:15 | disposition home or self-care (01) | DRG 897 ==
LOC: ED 14:30 → EDSEX 14:30 → MERGE 18:08 → 2S 18:08 → SUATTDRO 18:08 → 2S 23:35 → 3E 12-26 12:28